=== PATIENT | female | born 1940 | race Caucasian/White ===

== ENCOUNTER → 2016-07-20 | Outpatient (CLI) | payer MEDICARE, BC ==
[2016-07-20 10:40] LABS: EKG EKG PERFORMED
[2016-07-20 11:22] LABS: Basophils # (A) 0.1 k/uL (0-0.2); Basophils % (A) 1 %; CH 29.9; CHCM 31.8; Eosinophils # (A) 0.3 k/uL (0-0.7); Eosinophils % (A) 5 %; HDW 2.51; HGB 12.9 gm/dL (11.4-16.0); Luc # (Auto) 0.21; Luc % (Auto) 3; Lymphocytes # (A) 1.7 k/uL (1.0-4.8); Lymphocytes % (A) 26 %; MCH 29.8 pg (25.0-35.0); MCHC 31.6 g/dL (31.0-37.0); MCV 94.4 fL (80.0-100.0); Mean Platelet Volume 7.1; Monocytes # (A) 0.5 k/uL (0-1.0); Monocytes % (A) 7 %; Neutrophils # (A) 3.8 k/uL (1.3-7.7); Neutrophils % (A) 58 %; RBC 4.34 m/uL (3.80-5.40); RDW 14.3 % (11.5-15.5); WBC 6.5 k/uL (3.8-10.6); WBC (Perox) 7.42
[2016-07-20 11:23] LABS: Appearance,Urine Clear (Clear); Bilirubin,Urine Negative (Negative); Glucose,Urine (UA) Negative (Negative); Ketones,Urine Negative (Negative); Leukocyte Esterase,Urine Negative (Negative); Nitrite,Urine Negative (Negative); PH, Urine 5.5 (5.0-8.0); Protein,Urine Negative (Negative); Specific Gravity,Urine 1.016 (1.001-1.035); UA Billing (MACRO vs. MICRO) CHEM; Urobilinogen,Urine <2.0 mg/dL (<2.0)
[2016-07-20 11:31] LABS: ALT 31 U/L (9-52); AST 32 U/L (14-36); Alkaline Phosphatase 62 U/L (38-126); Anion Gap 14 mmol/L; Blood Urea Nitrogen 25 mg/dL (7-17); Calcium 9.9 mg/dL (8.4-10.2); Carbon Dioxide 27 mmol/L (22-30); Chloride 102 mmol/L (98-107); Glucose 94 mg/dL (74-99); Non-African American GFR(MDRD) >60 (>60 ml/min/1.73 sqM); Potassium 4.8 mmol/L (3.5-5.1); Sodium 143 mmol/L (137-145); Total Bilirubin 0.4 mg/dL (0.2-1.3); Total Protein 7.4 g/dL (6.3-8.2)
[2016-07-20 11:34] LABS: INR 1.1 (<1.1); Prothrombin Time 10.7 sec (9.0-12.0)
== END ==
LOC: LABPAT 10:29
PROVIDERS: ATTEND Orthopaedic Surgery
DX: Z01.810 Encounter for preprocedural cardiovascular examination (principal); Z01.812 Encounter for preprocedural laboratory examination
CPT/HCPCS: 80053; 81003; 85025; 85610; 85730; 87070; 93005

== ENCOUNTER 2016-08-10 06:22 | Inpatient (IN) | payer MEDICARE, BC ==
[2016-08-07 12:12] VITALS: BMI 33.5
[~2016-08-10 06:22] MED LIST: ACETAMINOPHEN TAB 500 MG TAB PO ONE; DEXAMETHASONE SOD PHOSPHATE 10 MG/ML 1 ML VIAL IV ONE; MELOXICAM 7.5 MG TAB PO ONE; MIDAZOLAM 2 MG/2 ML VIAL IV PRN; TRANEXAMIC ACID 1,000 MG in SODIUM CHLORIDE 0.9% 100 ML IVPB ONE; ceFAZolin 2 GM in SODIUM CHLORIDE 0.9% 100 ML IVPB ONE
[2016-08-10 06:43] VITALS: RESP 16
[2016-08-10] MEDS: LACTATED RINGERS 1,000 ML IV SCH (06:55)
[2016-08-10] MEDS ORDERED: LIDOCAINE 1% 20 ML VIAL (10MG/ML) FOR IV START INTRADERMA ONE (06:56)
[2016-08-10] MEDS: ONDANSETRON 4 MG/2 ML VIAL IVP ONE ×2 (07:07→10:47)
[2016-08-10] MEDS ORDERED: HYDROmorphone (PF) 1 MG/ML ONE (07:50)
[2016-08-10] MEDS ORDERED: VECURONIUM 10 MG VIAL IV ONE (07:50)
[2016-08-10] MEDS ORDERED: LIDOCAINE 1% INJ 10MG/ML (20 ML MDV) ONE (07:50)
[2016-08-10] MEDS ORDERED: KETOROLAC 30 MG/ML 1 ML VIAL ONE (07:50)
[2016-08-10] MEDS ORDERED: NEOSTIGMINE 1 MG/ML 10 ML VIAL ONE (07:50)
[2016-08-10] MEDS ORDERED: GLYCOPYRROLATE 0.2 MG/ML 2 ML VIAL ONE (07:50)
[2016-08-10] MEDS ORDERED: fentaNYL (PF) 50 MCG/ML 2 ML AMP ONE (07:50)
[2016-08-10] MEDS ORDERED: MIDAZOLAM 2 MG/2 ML VIAL ONE (07:50)
[2016-08-10] MEDS ORDERED: SUCCINYLCHOLINE CHLORIDE 100 MG/5 ML SYR IV ONE (07:50)
[2016-08-10] MEDS ORDERED: PROPOFOL 10 MG/ML 20 ML VIAL IV ONE (07:50)
[2016-08-10] MEDS ORDERED: TRANEXAMIC ACID 1,000 MG/10 ML VIAL ONE (07:50)
[2016-08-10] MEDS ORDERED: SODIUM CHLORIDE 0.9% 100 ML BAG ONE (07:50)
[2016-08-10] MEDS ORDERED: ePHEDrine 50 MG/ML 1 ML AMP ONE (07:50)
[2016-08-10] MEDS ORDERED: ceFAZolin 3,000 MG in SODIUM CHLORIDE 0.9% IRRIGATIO 3,000 ML IRRIGATION ONE (08:25)
--- NOTE | 2016-08-10 09:50 | P.OP ---
Date of Procedure: 08/10/16 Preoperative Diagnosis: Severe osteoarthritis right shoulder with chronic rotator cuff tear Postoperative Diagnosis: Severe osteoarthritis right shoulder with chronic rotator cuff tear Procedure(s) Performed: Reverse total shoulder arthroplasty Implants: Aguilar SMR shoulder system, humeral stem, 15 mm porous-coated. Aguilar SMR shoulder system, humeral bearing standard +3 Aguilar SMR shoulder, Glenosphere baseplate, small Aguilar SMR shoulder, central peg, Small Aguilar SMR shoulder, bone screw, 6.5mm x 25mm, 30mm Aguilar SMR reverse shoulder glenosphere, 36 mm, small All components were press-fit. Articulation is metal on polyethylene Anesthesia: ALDEN Surgeon: Primitivo Romero Scarf And Anneal Operator #1: Annita Browning Scarf And Anneal Operator #2: Tammy Morel Estimated Blood Loss (ml): 100 Pathology: other (Bone and cartilage) Condition: stable Disposition: PACU Indications for Procedure: This is a patient that presented to my office with severe pain in the shoulder. X-rays demonstrated severe osteoarthritis of the glenohumeral joint of her shoulder. After failure of conservative treatment, we discussed the surgical and nonsurgical treatment options at length. The patient wishes to proceed with a reverse total shoulder arthroplasty. Patient is aware of the complications of the procedure which include but are not limited to infection, hardware failure, persistent pain, dislocation, and nerve injury. Informed consent was obtained. Operative Findings: The operative findings are consistent with severe osteoarthritis the right shoulder with chronic rotator cuff tear. Description of Procedure: DESCRIPTION OF PROCEDURE(S): The patient was seen in the preoperative area, consent was reviewed, and operative site was marked with a skin marker. Patient was then brought to the operating room and given preoperative antibiotics intravenously. Patient was also given 1 g of Tranexamic acid intravenously. A general anesthetic was administered by the anesthesia department. The patient was then placed in a beachchair position with the bony prominences well-padded and the head secured. The shoulder was then prepped and draped in the usual sterile fashion. A universal timeout was then performed, which confirmed the patient's name, surgical site, ALLERGIES, and consent. A standard deltopectoral approach was performed. The skin and subcutaneous tissue was sharply dissected down to the deltoid fascia. The cephalic vein was then identified and retracted medially. The deltopectoral interval was then utilized to expose the subscapularis tendon. A retractor was then placed under the coracobrachialis tendon retracted medially, and the deltoid. The axillary nerve is palpated and protected throughout the procedure. The subscapularis tendon was then released and retracted medially. The humeral head was then exposed easily. The rotator cuff tendon was found to be completely torn and retracted. After the humeral head was exposed, osteophytes were removed with a Ronguer. Next the humeral stem was prepared. A starter reamer was then placed through the humeral head along the axis of the humeral shaft just lateral to the articular surface and just medial to the rotator cuff attachment. Sequential reaming was performed to the appropriate size. Next the intramedullary resection guide was placed on the reamer shaft. It was placed to the appropriate resection depth and angle of 20 of retroversion. Resection guide block was then secured with Steinmann pins. The proximal humerus was then resected. The block was then removed and the humerus was then reamed sequentially to a secure fit. The Reamer handle was removed and a canal cover was placed protect the humerus while the glenoid was prepared. Next attention was directed to the glenoid. The appropriate retractors were placed around the glenoid and any remaining soft tissues was removed from around the glenoid. After the glenoid was adequately exposed, the threaded glenoid guide was placed onto the glenoid and a 3.2 mm Steinmann pin was inserted in the glenoid at the desired angle and position, ensuring the pin engaged medial cortical wall. Next, the cannulated baseplate reamer was placed over the top of the Steinmann pin. The glenoid was then reamed to the appropriate depth. The glenoid reamer was then removed, leaving the Steinmann pin. The central plug reamer was then inserted over the guidewire and reamed to the appropriate depth. The guidewire was then removed. The glenoid baseplate was then preassembled on the back table, and then inserted and fully seated into the prepared glenoid. 2 screws were then placed, one superior, and one inferior. Appropriate Galen a sphere was then assembled onto the insertion handle and inserted into the glenoid baseplate. The locking screw was then inserted into the glenoid sphere. Attention was then redirected to the humerus. The humeral inlay reamer was then used to ream the proximal humerus. The final stem was then impacted. Next a trial humeral tray was placed in the shoulder was reduced. Shoulder was taken through a full range of motion and found to be stable. The shoulder was then gently dislocated, and the trial humerus and humeral tray were removed. The final humeral stem was impacted in the final humeral tray was impacted as well. Shoulder was then relocated. Again the shoulder was taken through a range of motion and found to have no instability. Shoulder was then irrigated with pulsatile lavage. The shoulder was then irrigated with Irrisept solution. The soft tissues were then injected with ropivacaine solution. A second dose of 1 g of Tranexamic acid was given. The subscapularis was then repaired with #1 Vicryl. The deltopectoral interval was then closed with #1 Vicryl as well. The subcutaneous tissues were closed with 2-0 Vicryl then Dermabond was placed on the skin. A sterile dressing was then applied, the patient was transported to the recovery room in an arm sling in stable condition. The legal administrative assistant Annita Browning required due the complexity of the surgery and the need for a skilled retirement assistant.
[2016-08-10] MEDS ORDERED: SENNOSIDES-DOCUSATE SODIUM 1 EACH TAB PO PRN (10:00)
[2016-08-10] MEDS ORDERED: HYDROmorphone 1 MG/ML 1 ML SYRINGE IVP PRN ×3 (10:00)
[2016-08-10] MEDS ORDERED: HYDROcodone/APAP 5-325MG 1 EACH TAB PO PRN (10:00)
--- NOTE | 2016-08-10 10:31 | XR ---
EXAMINATION TYPE: XR shoulder limited RT DATE OF EXAM: 08/10/2016 10:17 AM CLINICAL HISTORY: Postop right shoulder TECHNIQUE: Single postoperative view of the right shoulder is obtained. COMPARISON: None. FINDINGS: There is metallic hardware from reversed right shoulder arthroplasty. Position is satisfac tory. Adjacent subcutaneous air is noted IMPRESSION: There is satisfactory positioning of metallic hardware from right shoulder surgery.
[2016-08-10] MEDS: HYDROmorphone 1 MG/ML 1 ML SYRINGE IVP PRN ×2 (10:46→10:51)
[2016-08-10] MEDS: SODIUM CHLORIDE 0.9% 1,000 ML IV SCH (11:30)
[2016-08-10 12:32] LABS: Basophils # (A) 0.1 k/uL (0-0.2); Basophils % (A) 0 %; CH 29.7; CHCM 31.4; Eosinophils # (A) 0.1 k/uL (0-0.7); Eosinophils % (A) 0 %; HCT 37.6 % (34.0-46.0); HDW 2.41; HGB 11.8 gm/dL (11.4-16.0); Luc # (Auto) 0.07; Luc % (Auto) 1; Lymphocytes % (A) 8 %; MCH 29.8 pg (25.0-35.0); MCHC 31.4 g/dL (31.0-37.0); MCV 95.1 fL (80.0-100.0); Mean Platelet Volume 7.1; Monocytes # (A) 0.2 k/uL (0-1.0); Monocytes % (A) 2 %; Neutrophils # (A) 10.6 k/uL (1.3-7.7); Neutrophils % (A) 89 %; RBC 3.95 m/uL (3.80-5.40); RDW 14.2 % (11.5-15.5); WBC 11.9 k/uL (3.8-10.6); WBC (Perox) 12.78
[2016-08-10] MEDS: ceFAZolin 2 GM in SODIUM CHLORIDE 0.9% 100 ML IVPB SCH (14:32)
[2016-08-10] MEDS: HYDROcodone/APAP 5-325MG 1 EACH TAB PO PRN ×2 (14:33→20:49)
[2016-08-10] MEDS ORDERED: VENLAFAXINE HCL ER 150 MG CAP PO SCH (22:30)
[2016-08-11] MEDS: ceFAZolin 2 GM in SODIUM CHLORIDE 0.9% 100 ML IVPB SCH (01:08)
[2016-08-11] MEDS: HYDROcodone/APAP 5-325MG 1 EACH TAB PO PRN ×3 (04:56→16:10)
[2016-08-11] MEDS: SODIUM CHLORIDE 0.9% 1,000 ML IV SCH (04:59)
[2016-08-11] MEDS: LACTATED RINGERS 1,000 ML IV SCH (04:59)
[2016-08-11] MEDS ORDERED: PANTOPRAZOLE 40 MG TABLET PO SCH (09:00)
--- NOTE | 2016-08-11 09:18 | P.DS ---
Providers Date of admission: 08/10/16 06:22 Expected date of discharge: 08/11/16 Attending physician: Primitivo Romero Consults: 08/11/16 08:42 Consult Physician Routine Consulting Provider: Raj Fulton Reason/Comments: medical management Do you want consulting provider notified?: Yes Primary care physician: [facility] Course: This is a 75-year-old female with known history of severe osteoarthritis of the glenohumeral joint of the right shoulder. The patient presents for evaluation. After discussion and consideration patient elects to proceed with a reverse total shoulder arthroplasty. The patient is seen preoperatively by Dr. Romero and cleared for surgery. Patient is admitted to [facility] on 08/10/2016 for reverse total shoulder arthroplasty. The procedures performed without complication or sequelae. The patient is doing well postoperatively. Labs and vital signs are stable on day of discharge. On day of discharge patient's shoulder incision is healing well. There is minimal erythema. There is no drainage noted at this time. There is minimal soft tissue swelling to the right shoulder. Patient has full motion of the right wrist and elbow. Neurovascular status to the right upper extremity is intact. Patient is discharged home in good condition. Please see med rec for accurate list of home medications. Plan - Discharge Summary New Discharge Prescriptions: HYDROcodone/APAP 5-325MG [Ponderosa 5-325] 1 - 2 tab PO Q4-6H PRN #90 tab PRN Reason: Pain Sennosides-Docusate Sodium [Senokot-S] 1 tab PO BID #60 tablet Discharge Medication List Bisoprolol-Hctz 10-6.25 mg [Ziac 10-6.25 MG] 1 tab PO QAM 03/07/15 [History] Estradiol [Estrace] 0.5 mg PO HS 03/07/15 [History] Omeprazole [PriLOSEC] 20 mg PO DAILY 03/07/15 [History] Venlafaxine HCl ER [Effexor XR] 150 mg PO HS 03/07/15 [History] Gabapentin [Neurontin] 600 mg PO QID 05/02/15 [History] Ferrous Sulfate [Iron (65 MG Elemental)] 325 mg PO DAILY 08/07/16 [History] Flaxseed Oil [Newport-3 Flaxseed Oil] 1,000 mg PO DAILY 08/07/16 [History] Meclizine [Antivert] 12.5 mg PO BID PRN 08/07/16 [History] ALPRAZolam [Alprazolam] 0.5 mg PO DAILY PRN 08/10/16 [History] HYDROcodone/APAP 5-325MG [Ponderosa 5-325] 1 - 2 tab PO Q4-6H PRN #90 tab 08/11/16 [ Rx] Sennosides-Docusate Sodium [Senokot-S] 1 tab PO BID #60 tablet 08/11/16 [Rx] Follow up Appointment(s)/Referral(s): Primitivo Romero DO [Doctor of Osteopathic Medicine] - 2 Weeks Activity/Diet/Wound Care/Special Instructions: Maintain sling for comfort May shower if no drainage from the incision Follow-up with [facility] with any questions or concerns Discharge Disposition: HOME SELF-CARE
[2016-08-11] MEDS ORDERED: MECLIZINE 12.5 MG TAB PO PRN (14:33)
[2016-08-11] MEDS ORDERED: ALPRAZolam 0.5 MG TAB PO PRN (14:33)
[2016-08-11 15:21] VITALS: BP 110/67; PULSE 67; TEMP 97.6
[2016-08-11] MEDS ORDERED: BISOPROLOL-HCTZ 10-6.25 MG 1 EACH TAB PO SCH (16:00)
[2016-08-11 16:07] LABS: Appearance,Urine Clear (Clear); Bilirubin,Urine Negative (Negative); Glucose,Urine (UA) Negative (Negative); Ketones,Urine Negative (Negative); Leukocyte Esterase,Urine Negative (Negative); Nitrite,Urine Negative (Negative); PH, Urine 5.5 (5.0-8.0); Protein,Urine Negative (Negative); Specific Gravity,Urine 1.006 (1.001-1.035); UA Billing (MACRO vs. MICRO) CHEM; Urobilinogen,Urine <2.0 mg/dL (<2.0)
--- NOTE | 2016-08-11 17:31 | CONS ---
DATE OF CONSULTATION: 08/11/2016 REASON FOR CONSULTATION: Advice regarding hypertension and multiple medical issues, requested by Orthopedic [facility]. HISTORY OF PRESENT ILLNESS: This 75-year-old woman with a past medical history of GERD, hypertension, history of DJD, history of section, cholecystectomy, history of depression, being followed by Dr. Fulton in the outpatient setting, was admitted after right shoulder arthroplasty. There is no history of any fever, rigor, or chills. No history of any headache, loss of consciousness. No chest pain, palpitations, shortness of breath, hematochezia, melena. PAST MEDICAL HISTORY: 1. GERD. 2. Hypertension. 3. DJD. 4. History of back surgery. 5. History of depression. Medications prior to admission include: 1. Effexor XR 150 mg p.o. at bedtime. 2. Prilosec 20 mg p.o. daily. 3. Antivert 12.5 mg b.i.d. p.r.n. 4. Neurontin 600 mg p.o. q.i.d. 5. Belmont-3, flaxseed oil 1000 mg p.o. daily. 6. Iron 65 mg/325 mg p.o. daily. 7. Estrace 0.5 mg at bedtime. 8. Ziac 10/6.25 mg each morning. 9. Alprazolam 0.5 mg daily p.r.n. 10. Senokot-S one tablet p.o. b.i.d. 11. Hydrocodone (Bethany) 5 mg 1 to 2 tablet q.4-6 hours p.r.n. ALLERGIES: BENADRYL. FAMILY HISTORY: History of stomach cancer in the family. SOCIAL HISTORY: No history of smoking. No history of alcohol intake. REVIEW OF SYSTEMS: ENT: No diminishing hearing. No diminished vision. CARDIOVASCULAR SYSTEM: No angina, palpitations. RESPIRATORY SYSTEM: No cough, hemoptysis. GI: No nausea. : No dysuria. NERVOUS SYSTEM: No numbness or weakness. ALLERGY/IMMUNOLOGY: No asthma or hayfever. MUSCULOSKELETAL: As mentioned earlier. HEMATOLOGY/ONCOLOGY: No history of anemia. ENDOCRINE: No history of diabetes, hypothyroidism. CONSTITUTIONAL: As mentioned earlier. DERMATOLOGY: Negative. RHEUMATOLOGY: Negative. PSYCHIATRY: As mentioned earlier. PHYSICAL EXAMINATION: Patient is alert and oriented x3. Pulse 78, blood pressure 134/63, respiration 16, temperature 98.6, pulse ox 94% on room air. HEENT: Conjunctivae normal. Oral mucosa moist. NECK: No jugular venous distention. No carotid bruit. No lymph node enlargement. CARDIOVASCULAR SYSTEM: S1, S2 muffled. No S3. No S4. RESPIRATORY SYSTEM: Breath sounds diminished at the bases. A few scattered rhonchi. No crackles. ABDOMEN: Soft, nontender. No mass palpable. LEGS: No edema. No swelling. NERVOUS SYSTEM: Higher functions as mentioned earlier. Cranial nerves 2-12 grossly intact. Moves all 4 limbs. No focal motor or sensory deficit. LYMPHATICS: No lymph node palpable in neck, axillae or groin. JOINTS: Status post right shoulder arthroplasty. Labs at this time show WBC 11.9. ASSESSMENT: 1. Status post right shoulder arthroplasty. 2. Increased white count, possibly reactive. 3. Gastroesophageal reflux disease. 4. Hypertension. 5. History of degenerative joint disease. 6. History of gait dysfunction. 7. History of back surgery. 8. History of cholecystectomy. 9. History of degenerative joint disease. 10. History of depression not otherwise specified. 11. FULL CODE. RECOMMENDATIONS AND DISCUSSION: In this 75-year-old woman who presented with multiple complex medical issues, we will monitor the patient closely, continue the current medications, current with symptomatic treatment. Otherwise, at this time I would recommend DVT prophylaxis. Resume the home medications. I would also recommend incentive spirometry. Will follow the patient closely with you. The patient may be asked to follow with the primary physician closely. Thank you for letting us participate in the care of this patient.
[2016-08-11] MEDS ORDERED: GABAPENTIN 300 MG CAP PO SCH (18:00)
[2016-08-12] MEDS ORDERED: FERROUS SULFATE 325 MG TAB PO SCH (09:00)
== END 2016-08-11 16:50 | disposition home or self-care (01) | DRG 483 ==
LOC: 2ORMAIN 06:22 → 3SUR 10:14
PROVIDERS: ADMIT Orthopaedic Surgery; ATTEND Orthopaedic Surgery
PROC: 0RRJ00Z Replacement of Right Shoulder Joint with Reverse Ball and Socket Synthetic Substitute, Open Approach (ICD-10-PCS; principal; 2016-08-10 07:30)
DX: M19.011 Primary osteoarthritis, right shoulder (principal); I10 Essential (primary) hypertension; M19.012 Primary osteoarthritis, left shoulder; K21.9 Gastro-esophageal reflux disease without esophagitis; R26.9 Unspecified abnormalities of gait and mobility; F32.9 Major depressive disorder, single episode, unspecified; M75.101 Unspecified rotator cuff tear or rupture of right shoulder, not specified as traumatic; Z90.49 Acquired absence of other specified parts of digestive tract; Z79.899 Other long term (current) drug therapy
CPT/HCPCS: 81003; 85025; 88300

== ENCOUNTER → 2017-08-09 | Outpatient (CLI) | payer MEDICARE, BC ==
[2017-08-09 15:02] LABS: HCT 38.5 % (34.0-46.0); HGB 12.6 gm/dL (11.4-16.0); MCHC 32.7 g/dL (31.0-37.0); MCV 88.6 fL (80.0-100.0); Platelet Count 270 k/uL (150-450); RBC 4.34 m/uL (3.80-5.40); RDW 13.7 % (11.5-15.5); WBC 6.7 k/uL (3.8-10.6)
[2017-08-09 15:10] LABS: Partial Thromboplastin Time 23.7 sec (22.0-30.0)
[2017-08-09 15:22] LABS: Albumin 4.2 g/dL (3.5-5.0); Calcium 9.6 mg/dL (8.4-10.2); Potassium 4.3 mmol/L (3.5-5.1); Total Bilirubin 0.2 mg/dL (0.2-1.3); Total Protein 6.7 g/dL (6.3-8.2)
[2017-08-09 15:24] LABS: Appearance,Urine Clear (Clear); Bilirubin,Urine Negative (Negative); Blood,Urine Negative (Negative); Color,Urine Light Yellow; Glucose,Urine (UA) Negative (Negative); Ketones,Urine Negative (Negative); Leukocyte Esterase,Urine Negative (Negative); Nitrite,Urine Negative (Negative); Protein,Urine Negative (Negative); Specific Gravity,Urine 1.013 (1.001-1.035); Urobilinogen,Urine <2.0 mg/dL (<2.0)
== END | disposition home or self-care (01) ==
LOC: LABPAT 14:37
PROVIDERS: ATTEND Orthopaedic Surgery
DX: Z01.812 Encounter for preprocedural laboratory examination (principal)
CPT/HCPCS: 36415; 80053; 81003; 85027; 85610; 85730; 87070; 93005

== ENCOUNTER 2017-08-17 11:26 | Inpatient (IN) | payer MEDICARE, BC ==
[2017-08-10 11:20] VITALS: BMI 32.3
[~2017-08-17 11:26] MED LIST changes: +HYDROmorphone 0.5 MG/0.5 ML SYRINGE IVP PRN; +LACTATED RINGERS 1,000 ML IV SCH; +LIDOCAINE 1% 20 ML VIAL (10MG/ML) FOR IV START INTRADERMA PRN; +MORPHINE SULFATE 2 MG/ML SYRINGE IV PRN; +ONDANSETRON ODT 4 MG TAB PO ONE; +SCOPOLAMINE 1.5MG/72HR PATCH TRANSDERM ONE; -TRANEXAMIC ACID 1,000 MG in SODIUM CHLORIDE 0.9% 100 ML IVPB ONE; +TRANEXAMIC ACID 1,000 MG in SODIUM CHLORIDE 0.9% 50 ML IVPB ONE; -ceFAZolin 2 GM in SODIUM CHLORIDE 0.9% 100 ML IVPB ONE; +ceFAZolin IN SWFI 2 GM/20 ML SYRINGE IVP ONE
[2017-08-17] MEDS: ONDANSETRON 4 MG/2 ML VIAL IVP ONE ×2 (12:40→16:35)
[2017-08-17] MEDS ORDERED: PROPOFOL 10 MG/ML 20 ML VIAL IV ONE (14:29)
[2017-08-17] MEDS ORDERED: NEOSTIGMINE 1 MG/ML 10 ML VIAL ONE (14:29)
[2017-08-17] MEDS ORDERED: LIDOCAINE 1% INJ 10MG/ML (20 ML MDV) ONE (14:29)
[2017-08-17] MEDS ORDERED: ePHEDrine SULFATE/0.9% NACL/PF 50 MG/5 ML SYRINGE IV ONE (14:29)
[2017-08-17] MEDS ORDERED: GLYCOPYRROLATE 0.2 MG/ML 2 ML VIAL ONE (14:29)
[2017-08-17] MEDS ORDERED: SUCCINYLCHOLINE CHLORIDE 100 MG/5 ML SYR IV ONE (14:29)
[2017-08-17] MEDS ORDERED: fentaNYL (PF) 50 MCG/ML 2 ML AMP ONE (14:29)
[2017-08-17] MEDS ORDERED: SODIUM CHLORIDE 0.9% 100 ML BAG ONE (14:29)
[2017-08-17] MEDS ORDERED: TRANEXAMIC ACID 1,000 MG/10 ML VIAL ONE (14:29)
[2017-08-17] MEDS ORDERED: PHENYLEPHRINE-0.9% NACL SYG 1 MG/10 ML SYRINGE ONE (14:29)
[2017-08-17] MEDS ORDERED: VECURONIUM 10 MG VIAL IV ONE (14:29)
[2017-08-17] MEDS ORDERED: ceFAZolin 1,000 MG in SODIUM CHLORIDE 0.9% 1,000 ML IRRIGATION ONE (15:11)
--- NOTE | 2017-08-17 16:04 | P.OP ---
Date of Procedure: 08/17/17 Preoperative Diagnosis: Severe osteoarthritis the left shoulder with chronic rotator cuff tear. Postoperative Diagnosis: Severe osteoarthritis of left shoulder with chronic rotator cuff tear Procedure(s) Performed: Reverse total shoulder arthroplasty Implants: Biomet comprehensive shoulder system, mini humeral stem, 10 mm porous-coated. Biomet comprehensive reverse shoulder system, humeral bearing, 44 mm x 36 mm, standard Biomet comprehensive reverse shoulder system, humeral tray with locking ring, 44 mm, standard Biomet comprehensive reverse shoulder, Glenosphere baseplate, 25 mm Biomet comprehensive reverse shoulder, central screw, 6.5 mm x 20 mm Biomet comprehensive reverse shoulder, fixed locking screw, 4.75 x 25 mm, 15 mm , 15 mm, 25 mm. Biomet comprehensive reverse shoulder glenosphere, 36 mm, standard All components were press-fit. Articulation is metal on polyethylene. Anesthesia: GETA Surgeon: Primitivo Romero Studio Potter #1: Tammy Rodriguez Estimated Blood Loss (ml): 200 Pathology: other (Humeral head) Condition: stable Disposition: PACU Indications for Procedure: This is a patient that presented to my office with severe pain in the shoulder. X-rays demonstrated severe osteoarthritis of the glenohumeral joint of her shoulder. After failure of conservative treatment, we discussed the surgical and nonsurgical treatment options at length. The patient wishes to proceed with a reverse total shoulder arthroplasty. Patient is aware of the complications of the procedure which include but are not limited to infection, hardware failure, persistent pain, dislocation, and nerve injury. Informed consent was obtained. Operative Findings: The operative findings are consistent with severe osteoarthritis of the left shoulder with chronic rotator cuff tear. Description of Procedure: The patient was seen in the preoperative area, consent was reviewed, and operative site was marked with a skin marker. Patient was then brought to the operating room and given preoperative antibiotics intravenously. Patient was also given 1 g of Tranexamic acid intravenously. A general anesthetic was administered by the anesthesia department. A Hoover catheter was placed by the nursing staff. The patient was then placed in a beachchair position with the bony prominences well-padded and the head secured. The shoulder was then prepped and draped in the usual sterile fashion. A universal timeout was then performed, which confirmed the patient's name, surgical site, ALLERGIES, and consent. A standard deltopectoral approach was performed. The skin and subcutaneous tissue was sharply dissected down to the deltoid fascia. The cephalic vein was then identified and retracted medially. The deltopectoral interval was then utilized to expose the subscapularis tendon. A retractor was then placed under the coracobrachialis tendon retracted medially, and the deltoid. The axillary nerve is palpated and protected throughout the procedure. The subscapularis tendon was then released and retracted medially. The humeral head was then exposed easily. The rotator cuff tendon was found to be completely torn and retracted. After the humeral head was exposed, osteophytes were removed with a Ronguer. Next the humeral stem was prepared. A starter reamer was then placed through the humeral head along the axis of the humeral shaft just lateral to the articular surface and just medial to the rotator cuff attachment. Sequential reaming was performed to the appropriate size reamer was inserted to the # between the 3 and 4 on the reamer. Next the intramedullary resection guide was placed on the reamer shaft. It was placed to the appropriate resection depth and angle of 30 of retroversion. Resection guide block was then secured with Steinmann pins. The proximal humerus was then resected. The block was then removed and the humerus was then broached sequentially to the same size as the reamer. After the broaches fully seated, the broach handle was removed and a broach cover was placed protect the humerus while the glenoid was prepared. Next attention was directed to the glenoid. The appropriate retractors were placed around the glenoid and any remaining soft tissues was removed from around the glenoid. After the glenoid was adequately exposed, the threaded glenoid guide was placed onto the glenoid and a 3.2 mm Steinmann pin was inserted in the glenoid at the desired angle and position, ensuring the pin engaged medial cortical wall. Next, the cannulated baseplate reamer was placed over the top of the Steinmann pin. The glenoid was then reamed to the appropriate depth. The glenoid reamer was then removed, leaving the Steinmann pin. The glenoid Edgard plate implant was placed on the end of the cannulated baseplate impactor. The baseplate was then impacted fully into the glenoid. Next the 6.5 mm central screw was then placed which afforded excellent fixation. The 4 peripheral locking screws were then drilled measured and placed. Next the appropriate glenosphere was opened and impacted into the glenoid baseplate. Attention was then redirected to the humerus. Next a trial humeral tray was placed in the shoulder was reduced. Shoulder was taken through a full range of motion and found to be stable. The shoulder was then gently dislocated, and the trial humerus and humeral tray were removed. The final humeral stem was impacted in the final humeral tray was impacted as well. Shoulder was then relocated. Again the shoulder was taken through a range of motion and found to have no instability. Shoulder was then irrigated with pulsatile lavage. The shoulder was then irrigated with Irrisept solution. The soft tissues were then injected with a ropivacaine solution, which consisted of 246.25 mg of ropivacaine, 0.5 mg of epinephrine, 30 mg of Toradol, 80 g of clonidine, and 48.45 mL of sterile water , for a total of 100 mL of fluid injected. A second dose of 1 g of Tranexamic acid was given. The subscapularis was then repaired with #1 Vicryl. The deltopectoral interval was then closed with #1 Vicryl as well. The subcutaneous tissues were closed with 2-0 Vicryl then Dermabond was placed on the skin. A sterile dressing was then applied, the patient was transported to the recovery room in an arm sling in stable condition. The trade sales assistant DANNIELLE Potts was required due the complexity of surgery and the need for a skilled surgical training specialist.
[2017-08-17] MEDS ORDERED: SENNOSIDES-DOCUSATE SODIUM 1 EACH TAB PO PRN (16:19)
[2017-08-17] MEDS ORDERED: HYDROcodone/APAP 5-325MG 1 EACH TAB PO PRN (16:19)
[2017-08-17] MEDS ORDERED: MORPHINE SULFATE 4 MG/ML SYRINGE IVP PRN ×2 (16:19)
[2017-08-17] MEDS ORDERED: ONDANSETRON 4 MG/2 ML VIAL IVP PRN (16:19)
[2017-08-17] MEDS: fentaNYL (PF) 50 MCG/ML 2 ML AMP IVP ONE ×4 (16:52→17:16)
--- NOTE | 2017-08-17 16:59 | XR ---
EXAMINATION TYPE: XR shoulder limited LT DATE OF EXAM: 08/17/2017 COMPARISON: NONE HISTORY: 76-year-old female status post reverse total shoulder arthroplasty TECHNIQUE: Portable AP view of FINDINGS: AC joint appears congruent and intact. Image shows placement of left reverse total shoulder arthropla sty. Alignment appears appropriate. Suggestion of some heterotopic ossification along the superior ma rgin of the shoulder joint can be correlated clinically. Soft tissue air relating to recent operation . No periprosthetic fracture seen. IMPRESSION: Postoperative changes after first left shoulder arthroplasty. Some ossific density directly above the glenosphere component can be correlated clinically. Alignment appears appropriate.
[2017-08-17] MEDS: SODIUM CHLORIDE 0.9% 1,000 ML IV SCH (18:14)
[2017-08-17] MEDS: HYDROcodone/APAP 5-325MG 1 EACH TAB PO PRN (18:16)
[2017-08-17] MEDS ORDERED: ASPIRIN PO PRN (18:20)
[2017-08-17] MEDS ORDERED: ALPRAZolam 1 MG TAB PO PRN (18:20)
--- NOTE | 2017-08-17 18:30 | P.CONS ---
History of Present Illness - Reason for Consult Recommendations regarding antihypertensive medications - History of Present Illness She is a pleasant 76-year-old female admitted for elective left shoulder arthroplasty successfully underwent surgery denied any fever, chills, nausea, vomiting patient is postoperative day 0 did not pass gas yet just came out of 4. Patient does have history of hypertension uses beta helena and diuretic combination which will be continued patient blood pressures fairly controlled does have some pain was just received pain medications for that. Review of Systems REVIEW OF SYSTEMS: CONSTITUTIONAL: No fever, no malaise, no fatigue. HEENT: No recent visual problems or hearing problems. Denied any sore throat. CARDIOVASCULAR: No chest pain, orthopnea, PND, no palpitations, no syncope. PULMONARY: No shortness of breath, no cough, no hemoptysis. GASTROINTESTINAL: No diarrhea, no nausea, no vomiting, no abdominal pain. Normoactive bowel sounds. NEUROLOGICAL: No headaches, no weakness, no numbness. HEMATOLOGICAL: Denies any bleeding or petechiae. GENITOURINARY: Denies any burning micturition, frequency, or urgency. MUSCULOSKELETAL/RHEUMATOLOGICAL: Denies any joint pain, swelling, or any muscle pain. ENDOCRINE: Denies any polyuria or polydipsia. The rest of the 14-point review of systems is negative. Past Medical History Past Medical History: GERD/Reflux, Hypertension, Osteoarthritis (OA) Additional Past Medical History / Comment(s): neuropathy, uses cane or walker. , pain left shoulderwith limited r.o.m. , Hx of anemia with blood transfusions. History of Any Multi-Drug Resistant Organisms: None Reported Past Surgical History: Back Surgery, Section, Cholecystectomy, Hysterectomy, Joint Replacement, Orthopedic Surgery Additional Past Surgical History / Comment(s): BAUTISTA KNEE REPLACEMENTS, C SECTION X3,BACK SURG X 3, 03-18-15 ANT TOTAL LT HIP REPLACEMENT. , CARPAL TUNNEL, RIGHT SHOULDER TLS 08/17/17 Past Anesthesia/Blood Transfusion Reactions: Postoperative Nausea & Vomiting ( PONV) Additional Past Anesthesia/Blood Transfusion Reaction / Comm: pt denies problems with blood transfusions Past Psychological History: Depression Smoking Status: Never smoker Past Alcohol Use History: Rare Past Drug Use History: None Reported - Past Family History Brother(s) Family Medical History: Cancer Additional Family Medical History / Comment(s): STOMACH CANCER Father Family Medical History: Cancer Additional Family Medical History / Comment(s): STOMACH CANCER Mother Family Medical History: No Reported History Medications and Allergies Home Medications Medication Instructions Recorded Confirmed Type Bisoprolol-Hctz 10-6.25 mg [Ziac 1 tab PO QAM 03/07/15 08/17/17 History 10-6.25 MG] Omeprazole [PriLOSEC] 20 mg PO DAILY 03/07/15 08/17/17 History Venlafaxine HCl ER [Effexor XR] 150 mg PO HS 03/07/15 08/17/17 History ALPRAZolam [Alprazolam] 1 mg PO HS PRN 08/10/16 08/17/17 History Aspirin [Aspirin EC] 1,000 mg PO DAILY PRN 08/10/17 08/17/17 History Gabapentin [Neurontin] 1,600 mg PO BID 08/10/17 08/17/17 History Ibuprofen [Advil] 400 mg PO BID PRN 08/10/17 08/17/17 History Allergies Allergy/AdvReac Type Severity Reaction Status Date / Time diphenhydramine HCl Allergy Restless, Verified 08/17/17 17:04 [From Benadryl] Itchy. Physical Exam Vitals: Vital Signs Temp Pulse Pulse Resp BP BP Pulse Ox 08/17/17 18:00 97.9 F 64 16 154/63 98 08/17/17 17:37 59 L 16 145/69 96 08/17/17 17:21 58 L 16 140/66 98 08/17/17 17:06 59 L 16 146/66 97 08/17/17 16:51 57 L 16 140/64 95 08/17/17 16:36 60 16 124/58 98 08/17/17 16:21 97 F L 66 18 146/66 95 08/17/17 12:34 97.8 F 61 16 141/84 95 Intake and Output 08/17/17 08/17/17 08/17/17 06:59 14:59 22:59 Intake Total 750 326 Output Total 300 Balance 750 26 Intake: IV 750 326 Output: Urine 100 Estimated Blood Loss 200 Other: Voiding Method Toilet Weight 72.575 kg PHYSICAL EXAMINATION: GENERAL: The patient is alert and oriented x3, not in any acute distress. Well developed, well nourished. HEENT: Pupils are round and equally reacting to light. EOMI. No scleral icterus. No conjunctival pallor. Normocephalic, atraumatic. No pharyngeal erythema. No thyromegaly. CARDIOVASCULAR: S1 and S2 present. No murmurs, rubs, or gallops. PULMONARY: Chest is clear to auscultation, no wheezing or crackles. ABDOMEN: Soft, nontender, nondistended, normoactive bowel sounds. No palpable organomegaly. MUSCULOSKELETAL: Her to orthopedic surgery EXTREMITIES: No cyanosis, clubbing, or pedal edema. NEUROLOGICAL: Gross neurological examination did not reveal any focal deficits. SKIN: No rashes. Assessment and Plan Plan: -Status post a left shoulder arthroplasty: Patient pain management and due to prophylaxis per primary service -hypertension patient will be resumed on antiplatelet medication x-ray -hyperlipidemia -Gastro-esophageal reflux disease. -Depression For above-mentioned chronic medical problems patient will be resumed and continued on her home medications.
[2017-08-17] MEDS: GABAPENTIN 400 MG CAP PO SCH (20:49)
[2017-08-17] MEDS ORDERED: VENLAFAXINE HCL ER 150 MG CAP PO SCH (21:00)
[2017-08-17] MEDS: MORPHINE SULFATE 4 MG/ML SYRINGE IVP PRN (21:45)
[2017-08-17] MEDS: ceFAZolin IN SWFI 2 GM/20 ML SYRINGE IVP SCH (23:19)
[2017-08-18] MEDS: HYDROcodone/APAP 5-325MG 1 EACH TAB PO PRN (01:35)
[2017-08-18] MEDS: MORPHINE SULFATE 4 MG/ML SYRINGE IVP PRN (02:32)
[2017-08-18] MEDS ORDERED: PANTOPRAZOLE 40 MG TABLET PO SCH (07:30)
[2017-08-18] MEDS: GABAPENTIN 400 MG CAP PO SCH (08:03)
[2017-08-18] MEDS ORDERED: HYDROmorphone 2 MG TAB PO PRN ×3 (08:03)
[2017-08-18] MEDS: ceFAZolin IN SWFI 2 GM/20 ML SYRINGE IVP SCH (08:07)
[2017-08-18] MEDS: SODIUM CHLORIDE 0.9% 1,000 ML IV SCH (08:13)
[2017-08-18 08:20] VITALS: BP 115/65; PULSE 88; RESP 18; TEMP 98.5
[2017-08-18] MEDS ORDERED: HYDROcodone/APAP 7.5-325MG 1 EACH TAB PO PRN (08:51)
[2017-08-18] MEDS ORDERED: BISOPROLOL-HCTZ 10-6.25 MG 1 EACH TAB PO SCH (09:00)
--- NOTE | 2017-08-18 09:02 | P.DS ---
Providers Date of admission: 08/17/17 11:26 Expected date of discharge: 08/18/17 Attending physician: Primitivo Romero Consults: 08/17/17 16:19 Consult Physician Routine Consulting Provider: Lyle Eli Consult Reason/Comments: medical management Do you want consulting provider notified?: Yes Primary care physician: Raj Fulton - Discharge Diagnosis(es) (1) Primary osteoarthritis, left shoulder Current Visit: Yes Status: Acute (2) S/p reverse total shoulder arthroplasty Current Visit: Yes Status: Acute Hospital Course: This is a 76-year-old female with known history of degenerative arthritis of the left shoulder. The patient presents for evaluation. After discussion and consideration patient elects to proceed with reverse left total shoulder arthroplasty. The patient is seen preoperatively by Dr. Romero and medically cleared for surgery by their primary care physician. Patient is admitted to [facility] on 08/17/2017 for reverse left total shoulder arthroplasty. The procedures performed without complication or sequelae. The patient is doing well postoperatively. Labs and vital signs are stable on day of discharge. On day of discharge patient's shoulder incision is healing well. There is minimal erythema. There is no drainage noted at this time. There is minimal soft tissue swelling to the shoulder. Patient has full left wrist and hand motion without difficulty or pain. Neurovascular status to the left upper extremity is intact. Patient is discharged home in good condition. Please see med rec for accurate list of home medications. Plan - Discharge Summary Discharge Rx Participant: Yes New Discharge Prescriptions: New HYDROcodone/APAP 7.5-325MG [[place] 7.5-325] 1 - 2 tab PO Q4-6H PRN #90 tab PRN Reason: Pain Sennosides [Senokot] 1 tab PO BID #60 tablet No Action Venlafaxine HCl ER [Effexor XR] 150 mg PO HS Bisoprolol-Hctz 10-6.25 mg [Ziac 10-6.25 MG] 1 tab PO QAM Omeprazole [PriLOSEC] 20 mg PO DAILY ALPRAZolam [Alprazolam] 1 mg PO HS PRN PRN Reason: Insomnia Gabapentin [Neurontin] 1,600 mg PO BID Ibuprofen [Advil] 400 mg PO BID PRN PRN Reason: Pain Aspirin [Aspirin EC] 1,000 mg PO DAILY PRN PRN Reason: Pain Discharge Medication List Bisoprolol-Hctz 10-6.25 mg [Ziac 10-6.25 MG] 1 tab PO QAM 03/07/15 [History] Omeprazole [PriLOSEC] 20 mg PO DAILY 03/07/15 [History] Venlafaxine HCl ER [Effexor XR] 150 mg PO HS 03/07/15 [History] ALPRAZolam [Alprazolam] 1 mg PO HS PRN 08/10/16 [History] Aspirin [Aspirin EC] 1,000 mg PO DAILY PRN 08/10/17 [History] Gabapentin [Neurontin] 1,600 mg PO BID 08/10/17 [History] Ibuprofen [Advil] 400 mg PO BID PRN 08/10/17 [History] HYDROcodone/APAP 7.5-325MG [[place] 7.5-325] 1 - 2 tab PO Q4-6H PRN #90 tab [Rx] Sennosides [Senokot] 1 tab PO BID #60 tablet 08/18/17 [Rx] Follow up Appointment(s)/Referral(s): Primitivo Romero DO [Doctor of Osteopathic Medicine] - 2 Weeks Activity/Diet/Wound Care/Special Instructions: Maintain sling to left upper extremity. Leave dressing in place for 10 days. May shower with dressing in place. Ice to left shoulder. Please take medications as prescribed. Follow-up with [facility] with any questions or concerns. Discharge Disposition: HOME WITH HOME HEALTH SERVICES
[2017-08-18 09:51] LABS: Basophils % (A) 0 %; Eosinophils % (A) 0 %; HGB 11.3 gm/dL (11.4-16.0); Lymphocytes # (A) 1.9 k/uL (1.0-4.8); Lymphocytes % (A) 20 %; MCH 28.8 pg (25.0-35.0); MCHC 32.5 g/dL (31.0-37.0); MCV 88.8 fL (80.0-100.0); Mean Platelet Volume 7.7; Monocytes # (A) 0.7 k/uL (0-1.0); Monocytes % (A) 8 %; Neutrophils # (A) 6.4 k/uL (1.3-7.7); Neutrophils % (A) 69 %; Platelet Count 304 k/uL (150-450); RBC 3.94 m/uL (3.80-5.40); RDW 13.9 % (11.5-15.5); WBC 9.3 k/uL (3.8-10.6)
[2017-08-18] MEDS: HYDROcodone/APAP 7.5-325MG 1 EACH TAB PO PRN ×2 (11:07→17:19)
== END 2017-08-18 19:30 | disposition home or self-care (01) | DRG 483 ==
LOC: 2ORMAIN 11:26 → 3SUR 16:15
PROVIDERS: ADMIT Orthopaedic Surgery; ATTEND Orthopaedic Surgery
PROC: 0RRK00Z Replacement of Left Shoulder Joint with Reverse Ball and Socket Synthetic Substitute, Open Approach (ICD-10-PCS; principal; 2017-08-17 14:30)
DX: M19.012 Primary osteoarthritis, left shoulder (principal); M75.100 Unspecified rotator cuff tear or rupture of unspecified shoulder, not specified as traumatic; I10 Essential (primary) hypertension; F32.9 Major depressive disorder, single episode, unspecified; K21.9 Gastro-esophageal reflux disease without esophagitis; D64.9 Anemia, unspecified; G62.9 Polyneuropathy, unspecified; E78.5 Hyperlipidemia, unspecified; G47.00 Insomnia, unspecified; E78.1 Pure hyperglyceridemia; Z79.82 Long term (current) use of aspirin; Z79.899 Other long term (current) drug therapy; Z90.710 Acquired absence of both cervix and uterus; Z96.653 Presence of artificial knee joint, bilateral; Z96.611 Presence of right artificial shoulder joint; Z96.642 Presence of left artificial hip joint; Z88.8 Allergy status to other drugs, medicaments and biological substances; Z90.49 Acquired absence of other specified parts of digestive tract; Z80.0 Family history of malignant neoplasm of digestive organs
CPT/HCPCS: 85025; 88300

== ENCOUNTER → 2018-02-23 | Outpatient (CLI) | payer MEDICARE, BC ==
--- NOTE | 2018-02-25 08:22 | CT ---
EXAMINATION TYPE: CT shoulder RT wo con DATE OF EXAM: 02/23/2018 COMPARISON: Right shoulder postsurgical x-ray August 10, 2016 and left shoulder postsurgical x-ray August 17, 2017. HISTORY: pain rt shoulder, contusion injury, possible glenoid loosening. CT DLP: 413.9 mGycm Automated exposure control for dose reduction was used. FINDINGS: Metallic hardware from total reverse right shoulder arthroplasty is redemonstrated. There i s expected moderate atrophy of the supraspinatus and infraspinatus muscles noted best on sagittal jackie ges. Glenoid severe shows anterior rotation or position relative to rest of scaphoid with angulation measu red 37% on axial image 22. No suspicious surrounding lucency is seen. Humeral component shows no suspicious surrounding lucency and remains intact. Acromioclavicular joint is maintained. Visualized right lung is clear. Visualized ribs are intact. IMPRESSION: ABOVE.
== END | disposition home or self-care (01) ==
LOC: RADCTMAIN 13:52
PROVIDERS: ATTEND Orthopaedic Surgery
DX: S40.021D Contusion of right upper arm, subsequent encounter (principal); Z96.611 Presence of right artificial shoulder joint

== ENCOUNTER → 2019-03-07 | Outpatient (CLI) | payer MEDICARE, OTHER ==
[2019-03-07 15:36] LABS: Appearance,Urine Clear (Clear); Bilirubin,Urine Negative (Negative); Blood,Urine Negative (Negative); Color,Urine Light Yellow; Glucose,Urine (UA) Negative (Negative); Ketones,Urine Negative (Negative); Leukocyte Esterase,Urine Negative (Negative); Nitrite,Urine Negative (Negative); PH, Urine 5.5 (5.0-8.0); Protein,Urine Negative (Negative); Specific Gravity,Urine 1.011 (1.001-1.035); Urobilinogen,Urine <2.0 mg/dL (<2.0)
[2019-03-07 15:40] LABS: HCT 39.3 % (34.0-46.0); HGB 12.7 gm/dL (11.4-16.0); MCH 28.6 pg (25.0-35.0); MCHC 32.4 g/dL (31.0-37.0); MCV 88.2 fL (80.0-100.0); Mean Platelet Volume 6.6; Platelet Count 322 k/uL (150-450); RBC 4.45 m/uL (3.80-5.40); RDW 13.7 % (11.5-15.5); WBC 7.8 k/uL (3.8-10.6)
[2019-03-07 15:50] LABS: INR 0.9 (<1.2); Prothrombin Time 9.7 sec (9.0-12.0)
[2019-03-07 15:55] LABS: ALT 27 U/L (9-52); AST 29 U/L (14-36); African American GFR (CKD) >90 (>60 ml/min/1.73 sqM); Albumin 4.4 g/dL (3.5-5.0); Alkaline Phosphatase 79 U/L (38-126); Anion Gap 10 mmol/L; Blood Urea Nitrogen 19 mg/dL (7-17); Calcium 9.8 mg/dL (8.4-10.2); Carbon Dioxide 27 mmol/L (22-30); Chloride 105 mmol/L (98-107); Glucose 124 mg/dL (74-99); Non-African American GFR(CKD) 85 (>60 ml/min/1.73 sqM); Potassium 4.4 mmol/L (3.5-5.1); Sodium 142 mmol/L (137-145); Total Bilirubin 0.2 mg/dL (0.2-1.3); Total Protein 7.1 g/dL (6.3-8.2)
[2019-03-07 16:01] LABS: Partial Thromboplastin Time 19.7 sec (22.0-30.0)
== END | disposition home or self-care (01) ==
LOC: LABPAT 14:50
PROVIDERS: ATTEND Orthopaedic Surgery
DX: Z01.810 Encounter for preprocedural cardiovascular examination (principal); Z01.812 Encounter for preprocedural laboratory examination
CPT/HCPCS: 36415; 80053; 81003; 85027; 85610; 85730; 87070; 93005

== ENCOUNTER → 2019-03-13 | Outpatient (CLI) | payer MEDICARE | END | disposition home or self-care (01) | LOC: LABPAT 15:32 | PROVIDERS: ATTEND Orthopaedic Surgery | DX: Z01.812 Encounter for preprocedural laboratory examination (principal) | CPT/HCPCS: 36415; 86850; 86900; 86901 ==

== ENCOUNTER 2019-03-21 09:30 | Inpatient (IN) | payer MEDICARE, OTHER ==
[2019-03-20 12:08] VITALS: BMI 28.8
[~2019-03-21 09:30] MED LIST changes: -DEXAMETHASONE SOD PHOSPHATE 10 MG/ML 1 ML VIAL IV ONE; -LACTATED RINGERS 1,000 ML IV SCH; -LIDOCAINE 1% 20 ML VIAL (10MG/ML) FOR IV START INTRADERMA PRN; -MELOXICAM 7.5 MG TAB PO ONE; -MORPHINE SULFATE 2 MG/ML SYRINGE IV PRN; -ONDANSETRON ODT 4 MG TAB PO ONE; +ROPIVACAINE 246.25 MG, EPINEPHrine 0.5 MG, KETOROLAC 30 MG, cloNIDine HCL/PF 80 MCG, WA... MISCELLANE ONE; -SCOPOLAMINE 1.5MG/72HR PATCH TRANSDERM ONE; +TRANEXAMIC ACID 1,000 MG in SODIUM CHLORIDE 0.9% 100 ML IVPB ONE; -TRANEXAMIC ACID 1,000 MG in SODIUM CHLORIDE 0.9% 50 ML IVPB ONE; -ceFAZolin IN SWFI 2 GM/20 ML SYRINGE IVP ONE
[2019-03-21] MEDS: GABAPENTIN 300 MG CAP PO ONE ×2 (10:36→15:33)
[2019-03-21] MEDS: MELOXICAM 7.5 MG TAB PO ONE ×2 (10:36→15:33)
[2019-03-21] MEDS: LACTATED RINGERS 1,000 ML IV SCH (10:56)
[2019-03-21] MEDS: DEXAMETHASONE SOD PHOSPHATE 10 MG/ML 1 ML VIAL IV ONE ×2 (10:57→15:33)
[2019-03-21] MEDS: ONDANSETRON 4 MG/2 ML VIAL IVP ONE ×2 (10:57→16:38)
[2019-03-21] MEDS ORDERED: MAGNESIUM HYDROXIDE 2,400 MG/10 ML CUP PO PRN (11:11)
[2019-03-21] MEDS ORDERED: DIAZEPAM 5 MG TAB PO PRN (11:11)
[2019-03-21] MEDS ORDERED: NALOXONE 0.4 MG/ML 1 ML VIAL IV PRN (11:11)
[2019-03-21] MEDS ORDERED: HYDROmorphone 0.5 MG/0.5 ML SYRINGE IVP PRN ×3 (11:11)
[2019-03-21] MEDS ORDERED: ONDANSETRON 4 MG/2 ML VIAL IVP PRN (11:11)
[2019-03-21] MEDS ORDERED: fentaNYL (PF) 50 MCG/ML 2 ML AMP ONE (11:37)
[2019-03-21] MEDS ORDERED: HEPARIN SODIUM,PORCINE 10,000 UNIT/ML 1 ML VIAL ONE (11:37)
[2019-03-21] MEDS ORDERED: TRANEXAMIC ACID 1,000 MG/10 ML VIAL ONE (11:37)
[2019-03-21] MEDS ORDERED: MIDAZOLAM 2 MG/2 ML VIAL ONE (11:37)
[2019-03-21] MEDS ORDERED: PHENYLEPHRINE-0.9% NACL SYG 1 MG/10 ML SYRINGE ONE (11:37)
[2019-03-21] MEDS ORDERED: SODIUM CHLORIDE 0.9% IRRIG 1,000 ML BTL IRRIGATION ONE (11:37)
[2019-03-21] MEDS ORDERED: SODIUM CHLORIDE 0.9% 100 ML BAG ONE (11:37)
[2019-03-21] MEDS ORDERED: ePHEDrine SULFATE/0.9% NACL/PF 50 MG/5 ML SYRINGE IV ONE (11:37)
[2019-03-21] MEDS ORDERED: PROPOFOL 10 MG/ML 20 ML VIAL IV ONE (11:37)
[2019-03-21] MEDS ORDERED: ceFAZolin 3,000 MG in SODIUM CHLORIDE 0.9% IRRIGATIO 3,000 ML IRRIGATION ONE (11:40)
--- NOTE | 2019-03-21 13:20 | P.OP ---
Date of Procedure: 03/21/19 Preoperative Diagnosis: Severe osteoarthritis right hip Postoperative Diagnosis: Severe osteoarthritis right hip Procedure(s) Performed: Right total hip arthroplasty with a direct anterior approach Implants: Arriaga and nephew Polarstem size 2 standard [employer]riaga [employer] Nephew R3, 3 hole acetabular shell, 48 mm [employer]hew reflection 6.5 mm cancellus screw, 20 mm 2 [employer]aga [employer]hew R3, XLPE 20 acetabular liner [employer]riaga [employer]hew Oxinium femoral head 32 m, +4 All components were press-fit. The articulation is Oxinium on polyethylene. Anesthesia: spinal Surgeon: Primitivo Romero Health Coordinator #1: Tammy Rodriguez Estimated Blood Loss (ml): 350 (132 mL returned with Cell Saver) Pathology: other (Femoral head) Condition: stable Disposition: PACU Indications for Procedure: After failure of conservative treatment we discussed the surgical and nonsurgical treatment options at length. Patient wishes to proceed with a total hip arthroplasty with a direct anterior approach. Complications specific to this procedure were discussed at length, including but not limited to infection, leg length discrepancy, dislocation, and nerve injury. Patient is aware of all these complications and informed consent was obtained Operative Findings: The operative findings are consistent with severe osteoarthritis of the right hip Description of Procedure: Patient was seen and evaluated in the preoperative area, consent was reviewed, and the surgical site was marked with a skin marker. Patient was then brought to the operating room and given prophylactic antibiotics intravenously. 1 g of Tranexamic acid was also given. A spinal anesthetic was administered by the anesthesia department. The patient was then placed on the [place] table with the bony prominences well-padded. The hip area was then prepped and draped in usual sterile fashion. A universal timeout was then performed, which confirmed the patient's name, surgical site, ALLERGIES, and procedure being performed. Next the incision site was located at 1 cm distal and 1 cm lateral to the anterior superior iliac spine. The skin and subcutaneous tissues were sharply incised. Incision was carefully dissected down to the fascia overlying the tensor fascia jeanie muscle. This fascia was then incised in line with the incision. Next, using blunt finger dissection, the tensor fascia jeanie muscle was dissected off its investing fascia. The muscle was then carefully retracted laterally with a cobra retractor over the lateral neck of the femur. Next, the circumflex vessels were identified and cauterized using the AquaMantis device. The anterior hip capsule was then exposed. The capsule was then opened and an inverted T fashion. Cobra retractors were then placed intracapsularly. The proximal femur was then visualized. The femoral neck was then osteotomized appropriate level above the lesser trochanter. Small amount of traction was placed with the [place] table. A small wedge of bone was then removed from the remaining femoral head. Next, using a corkscrew femoral head was easily removed from the acetabulum. On gross visual inspection, the femoral head had complete loss of articular cartilage in m ultiple periarticular osteophytes. Attention was then turned to the acetabulum. the acetabulum was exposed and any remaining labrum was excised. Sequential reaming of the acetabulum was performed using fluoroscopic guidance. When the appropriate size was reached, a trial was then placed. The position and fit of the trial was checked with fluoroscopy. The trial was then removed. Then, using fluoroscopic guidance, the final implant was impacted at 20 of anteversion and 40 of abduction, and fully seated in the acetabulum. 2 screws were then placed in the acetabulum. Again fluoroscopy was used to check position of the screws. Next, the liner was then impacted, with a 20 elevated liner located in the anterior superior quadrant. Component locking was confirmed. Attention was then directed to the femur. With the aid of the [place] table, the femur was externally rotated to approximately 130, extended, and abducted under the opposite leg. A side hook was then placed under the proximal femur, and the side hook elevator was used to elevate the proximal femur. Retractors were then placed. A capsular release was performed, as well as a release of the conjoined tendon, which afforded excellent visualization of the proximal femur. Next, a box osteotome was used to lateralize the proximal femur. A mail handler equipment operator was then used to locate the femoral canal. Sequential broaching was then performed with appropriate size which afforded excellent fixation in the proximal femur. A trial was then placed with appropriate head and neck, and the hip was gently reduced with the aid of the [place] table. Fluoroscopy was then used to check position of the components, as well as to ensure equal leg lengths. The hip was then gently dislocated and the trials were then removed. Final implants were then impacted and the hip was again reduced. Final fluoroscopic x-rays confirmed that the components were in anatomic position, as well as equal leg lengths. The hip was also taken through range of motion, and found to be stable. The hip was then copiously irrigated with antibiotic solution with pulsatile lavage. The hip was then irrigated with Irrisept solution. The soft tissues were then injected with a ropivacaine solution, which consisted of 246.25 mg of ropivacaine, 0.5 mg of epinephrine, 30 mg of Toradol, 80 g of clonidine, and 48.45 mL of sterile water, for a total of 100 mL of fluid injected. A second dose of 1 g of Tranexamic acid was also given. the fascia was then closed with 2-0 strata fix suture. The subcutaneous tissue was closed with 3-0 Vicryl. The subcuticular tissue was closed with 3-0 strata fix suture. The skin was then closed with Dermabond glue and a sterile silver dressing. The patient was then transferred to the recovery room in stable c ondition. The conservation assistant DANNIELLE Potts was required due to the complexity of surgery, and the need for skilled surgical scheduler for positioning, draping, exposure, retraction, and closure of the wound.
--- NOTE | 2019-03-21 13:36 | FL ---
EXAMINATION TYPE: FL guidance operating room, XR Hip Limited RT DATE OF EXAM: 03/21/2019 CLINICAL HISTORY: Right hip pain and osteoarthritis. TECHNIQUE: Fluoroscopy. Limited intraoperative views right hip. COMPARISON: None. FINDINGS: Fluoroscopic guidance was provided during hip replacement procedure performed by Dr. Michelle stroud. A total of 51 seconds of fluoroscopic time was utilized during the procedure and two spot intra operative fluoroscopic images are acquired. Images acquired show satisfactory positioning of right hip hardware on frontal projection. IMPRESSION: As Above.
--- NOTE | 2019-03-21 14:01 | XR ---
EXAMINATION TYPE: XR Hip Limited RT DATE OF EXAM: 03/21/2019 CLINICAL HISTORY: Right hip pain and osteoarthritis. TECHNIQUE: Single AP portable view of right hip is obtained immediately postoperatively. COMPARISON: None. FINDINGS: Metallic hardware from right hip arthroplasty is seen and appears satisfactory in alignment and position. There is evidence of recent surgery with subcutaneous gas noted surrounding the prost hesis extending laterally. IMPRESSION: Metallic hardware from right hip arthroplasty is satisfactory in position.
[2019-03-21] MEDS: SODIUM CHLORIDE 0.9% 1,000 ML IV SCH (16:38)
[2019-03-21] MEDS: SENNOSIDES-DOCUSATE SODIUM 1 EACH TAB PO SCH (21:18)
[2019-03-21] MEDS: ASPIRIN 325 MG TAB PO SCH (21:18)
--- NOTE | 2019-03-21 22:49 | P.CONS ---
History of Present Illness - Reason for Consult Consult date: 03/21/19 Medical management Requesting physician: Primitivo Romero - Chief Complaint Right hip surgery - History of Present Illness Consultation: This is a pleasant 78-year-old patient of Dr. Fulton. Patient today has undergone right total hip arthroplasty. Developing some pain of the operative site. No nausea no vomiting. No dizziness no lightheadedness. Denies any chest pain. Chronic stable medical conditions include depression, GERD, hypertension, osteoarthritis. Patient is at low platelets in the past that has been corrected. Denies any cardiac history. Review of systems: GEN.: None EYES: None HEENT: None NECK: None RESPIRATORY: None CARDIOVASCULAR: None GASTROINTESTINAL: None GENITOURINARY: None MUSCULOSKELETAL: [Joint pains LYMPHATICS: None HEMATOLOGICAL: None PSYCHIATRY: Depression controlled NEUROLOGICAL: None Social history: Does not smoke. Alcohol rarely. Lives alone Physical examination: VITAL SIGNS: 97.9, 61, 17, 91/55, 98% on room air GENERAL: BMI 29.9, laying in bed comfortable. EYES: Pupils equal. Conjunctiva normal. HEENT: External appearance of nose and ears normal, oral cavity grossly normal. NECK: JVD not raised; masses not palpable. HEART: First and second heart sounds are normal; no edema. LUNGS: Respiratory rate normal; clear to auscultation. ABDOMEN: Soft, nontender, liver spleen not palpable, no masses palpable. PSYCH: Alert and oriented x3; mood and affect normal. NEUROLOGICAL: Cranial nerves grossly intact; no facial asymmetry, power and sensation grossly intact. LYMPHATICS: No lymph nodes palpable in the axilla and neck MUSCULOSKELETAL: Evidence of OA especially in the hands, dressing over the right hip INVESTIGATIONS, reviewed in the clinical context: Blood work from 03/07/2019. White count 7.8 hemoglobin 12.7 platelets 322 potassium 4.4 creatinine 0.63 Assessment: -Right total hip arthroplasty -GERD -Essential hypertension -Primary osteoarthritis -Depression not otherwise specified Plan: Home medications resumed. She is on aspirin 325 did have positive for DVT prophylaxis. Care was discussed with the patient. Questions were answered. Thank you Dr. Romero Past Medical History Past Medical History: GERD/Reflux, Hypertension, Osteoarthritis (OA) Additional Past Medical History / Comment(s): past hx low platelets, uses cane or walker, hx ulcer yrs ago, History of Any Multi-Drug Resistant Organisms: None Reported Past Surgical History: Back Surgery, Section, Cholecystectomy, Hysterectomy, Joint Replacement, Orthopedic Surgery Additional Past Surgical History / Comment(s): BAUTISTA KNEE REPLACEMENTS, C SECTION X3, BACK SURG X 3, ANT TOTAL LT HIP REPLACEMENT. ,CARPAL TUNNEL-not sure what hand, bautista shoulder replacements, bautista cataracts Past Anesthesia/Blood Transfusion Reactions: Blood Transfusion Reaction, Postoperative Nausea & Vomiting (PONV) Additional Past Anesthesia/Blood Transfusion Reaction / Comm: jittery and itchy Past Psychological History: Depression Smoking Status: Never smoker Past Alcohol Use History: Rare Past Drug Use History: None Reported - Past Family History Brother(s) Family Medical History: Cancer Additional Family Medical History / Comment(s): STOMACH CANCER Father Family Medical History: Cancer Additional Family Medical History / Comment(s): STOMACH CANCER Mother Family Medical History: No Reported History Medications and Allergies Home Medications Medication Instructions Recorded Confirmed Type Bisoprolol-Hctz 10-6.25 mg [Ziac 1 tab PO QAM 03/07/15 03/21/19 History 10-6.25 MG] Omeprazole [PriLOSEC] 20 mg PO DAILY 03/07/15 03/21/19 History Venlafaxine HCl ER [Effexor XR] 150 mg PO HS 03/07/15 03/21/19 History ALPRAZolam [Alprazolam] 1 mg PO HS PRN 08/10/16 03/21/19 History Gabapentin [Neurontin] 800 mg PO QID 08/10/17 03/21/19 History Ibuprofen [Advil] 800 mg PO QID PRN 08/10/17 03/21/19 History Estradiol 0.5 mg PO HS 03/20/19 03/21/19 History Sennosides [Senokot] 1 tab PO BID PRN 03/20/19 03/21/19 History Acetaminophen [Tylenol] 325 - 650 mg PO Q4H PRN 03/21/19 03/21/19 History Allergies Allergy/AdvReac Type Severity Reaction Status Date / Time diphenhydramine HCl Allergy Restless, Verified 03/21/19 10:51 [From Benadryl] Itchy. Physical Exam Vitals: Vital Signs Temp Pulse Resp BP BP Pulse Ox 03/21/19 17:05 68 105/46 03/21/19 16:50 66 87/42 12/03/19 16:35 64 94/57 03/21/19 16:20 65 97/52 03/21/19 16:05 63 90/44 03/21/19 15:50 64 106/49 03/21/19 15:35 64 115/64 03/21/19 15:20 64 108/51 03/21/19 15:05 64 145/49 03/21/19 14:50 97.9 F 61 17 91/55 98 03/21/19 14:30 57 L 16 119/57 99 03/21/19 14:16 55 L 16 118/57 99 03/21/19 14:01 60 16 121/55 98 03/21/19 13:45 60 16 96/50 99 03/21/19 13:39 97.0 F L 62 22 128/58 93 L 03/21/19 10:29 97.6 F 57 L 20 140/66 95 Intake and Output 03/21/19 03/21/19 03/21/19 06:59 14:59 22:59 Intake Total 1801 Output Total 350 400 Balance 1451 -400 Intake: IV 1801 Output: Urine 400 Estimated Blood Loss 350 Other: Weight 67.2 kg 67.2 kg
[2019-03-22] MEDS: HYDROcodone/APAP 5-325MG 1 EACH TAB PO PRN ×5 (00:12→23:20)
[2019-03-22] MEDS: LACTATED RINGERS 1,000 ML IV SCH (03:51)
[2019-03-22] MEDS: SODIUM CHLORIDE 0.9% 1,000 ML IV SCH ×2 (03:51→12:18)
[2019-03-22] MEDS: MELOXICAM 7.5 MG TAB PO SCH (07:34)
[2019-03-22] MEDS: ASPIRIN 325 MG TAB PO SCH ×2 (07:34→20:30)
[2019-03-22 08:15] LABS: Basophils % (A) 0 %; Eosinophils % (A) 0 %; HCT 25.5 % (34.0-46.0); Lymphocytes # (A) 1.6 k/uL (1.0-4.8); Lymphocytes % (A) 14 %; MCH 29.1 pg (25.0-35.0); MCHC 33.3 g/dL (31.0-37.0); MCV 87.4 fL (80.0-100.0); Mean Platelet Volume 6.8; Monocytes # (A) 0.8 k/uL (0-1.0); Monocytes % (A) 7 %; Neutrophils # (A) 8.3 k/uL (1.3-7.7); Neutrophils % (A) 76 %; Platelet Count 227 k/uL (150-450); RBC 2.92 m/uL (3.80-5.40); RDW 14.3 % (11.5-15.5); WBC 10.9 k/uL (3.8-10.6)
[2019-03-22 08:18] LABS: HGB 8.5 gm/dL (11.4-16.0)
--- NOTE | 2019-03-22 08:41 | P.PN ---
Subjective Progress Note Date: 03/22/19 This is an 78-year-old female who is status post right total hip arthroplasty. This is postoperative day #1 and patient is seen and evaluated at bedside with Dr. Primitivo Romero. Patient does complain of pain in the right hip today. Patient also reports pain in the right great toe along with difficulty dorsiflexing the right foot. Patient denies any fever/chills, numbness, weakness, tingling, abdominal pain, shortness of breath or chest pain. Objective - Vital Signs Vital signs: Vital Signs Temp 97.7 F 03/22/19 07:00 Pulse 71 03/22/19 07:00 Resp 17 03/22/19 07:00 BP 112/66 03/22/19 07:00 Pulse Ox 100 03/22/19 07:00 Intake & Output 03/21/19 03/22/19 03/22/19 18:59 06:59 18:59 Intake Total 1801 960 Output Total 750 1700 Balance 1051 -740 Weight 67.2 kg Intake: IV 1801 Oral 960 Output: Urine 400 1700 Estimated Blood Loss 350 Other: Voiding Method Toilet # Voids 3 - Exam Vital signs are stable. Patient is in no acute distress and is alert and oriented 3. Calf is soft and nontender to palpation. Dressing is clean, dry, and intact. Patient has difficulty with dorsiflexion of the right foot. Patient is able to actively plantar flex the right foot. Sensation intact upon palpation of the first dorsal webspace. There is no swelling, erythema or ecchymosis of the right foot. Sensation intact to the right lower extremity. Neurovascular status and circulatory status are intact. - Labs CBC & Chem 7: 03/22/19 07:51 Labs: Abnormal Lab Results - Last 24 Hours (Table) 03/22/19 Range/Units 07:51 WBC 10.9 H (3.8-10.6) k/uL RBC 2.92 L (3.80-5.40) m/uL Hgb 8.5 L D (11.4-16.0) gm/dL Hct 25.5 L (34.0-46.0) % Neutrophils # 8.3 H (1.3-7.7) k/uL Assessment and Plan (1) Osteoarthritis of right hip Current Visit: Yes Status: Acute Code(s): M16.11 - UNILATERAL PRIMARY OSTEOARTHRITIS, RIGHT HIP SNOMED Code(s): 878767237982571 (2) S/P total hip arthroplasty Current Visit: Yes Status: Acute Code(s): Z96.649 - PRESENCE OF UNSPECIFIED ARTIFICIAL HIP JOINT SNOMED Code(s): 544995943984 Plan: Continue routine postop care and pain control. Continue anticoagulation with aspirin. Weightbearing as tolerated with a walker. Patient is to work on range of motion of the right foot and ankle. Will continue monitoring. Leave dressing in place for 10 days. Appreciate input from medicine. Anticipate discharge to the [facility] on Wednesday.
[2019-03-22] MEDS: GABAPENTIN 400 MG CAP PO SCH ×2 (16:31→20:30)
[2019-03-22] MEDS: SENNOSIDES-DOCUSATE SODIUM 1 EACH TAB PO SCH (20:30)
--- NOTE | 2019-03-22 23:32 | P.PN ---
Progress Note - Text Progress Note Date: 03/22/19 - Chief Complaint Right hip surgery Interval history: This is a pleasant 78-year-old patient of Dr. Fulton. Patient today has undergone right total hip arthroplasty. Developing some pain of the operative site. No nausea no vomiting. No dizziness no lightheadedness. Denies any chest pain. Chronic stable medical conditions include depression, GERD, hypertension, osteoarthritis. Patient is at low platelets in the past that has been corrected. Denies any cardiac history. Today-doing better. Some pain in the right hip. Did local therapy. Did tolerate her diet. No nausea vomiting. Review of systems: Was done for constitutional, cardiovascular, GI, pulmonary. relevant finding as above Active Medications Hydrocodone Bitart/Acetaminophen ([place] 5-325) 1 each PO Q6HR PRN PRN Reason: Pain Scale 1 to 5 Last Admin: 03/22/19 12:17 Dose: 1 each Documented by: Hydrocodone Bitart/Acetaminophen ([place] 5-325) 2 each PO Q6HR PRN PRN Reason: Pain Scale 6 to 10 Last Admin: 03/22/19 23:20 Dose: 2 each Documented by: Aspirin (Aspirin) 325 mg PO BID [facility] Last Admin: 03/22/19 20:30 Dose: 325 mg Documented by: Diazepam (Valium) 2.5 mg PO Q8HR PRN PRN Reason: Mild Spasms Gabapentin (Neurontin) 800 mg PO QID [facility] Last Admin: 03/22/19 20:30 Dose: 800 mg Documented by: Hydromorphone HCl (Dilaudid) 0.125 mg IVP Q3HR PRN PRN Reason: Pain Scale 1 to 3 Hydromorphone HCl (Dilaudid) 0.25 mg IVP Q3HR PRN PRN Reason: Pain Scale 4 to 6 Hydromorphone HCl (Dilaudid) 0.5 mg IVP Q3HR PRN PRN Reason: Pain Scale 7 to 10 Sodium Chloride (Saline 0.9%) 1,000 mls @ 65 mls/hr IV .[id number] [facility] Last Admin: 03/22/19 12:18 Dose: 65 mls/hr Documented by: Magnesium Hydroxide (Milk Of Magnesia) 2,400 mg PO DAILY PRN PRN Reason: Constipation Meloxicam (Mobic) 7.5 mg PO DAILY [facility] Last Admin: 03/22/19 07:34 Dose: 7.5 mg Documented by: Naloxone HCl (Narcan) 0.2 mg IV Q2M PRN PRN Reason: Opioid Reversal Ondansetron HCl (Zofran) 4 mg IVP Q8H PRN PRN Reason: Nausea And Vomiting Senna/Docusate Sodium (Senokot-S) 2 each PO HS [facility] Last Admin: 03/22/19 20:30 Dose: 2 each Documented by: Physical examination: VITAL SIGNS: 98.6, 80, 16, 92/44, 98% room air GENERAL: Sitting up, comfortable EYES: Pupils equal. Conjunctiva normal. HEENT: External appearance of nose and ears normal, oral cavity grossly normal. NECK: JVD not raised; masses not palpable. HEART: First and second heart sounds are normal; no edema. LUNGS: Respiratory rate normal; clear to auscultation. ABDOMEN: Soft, nontender, liver spleen not palpable, no masses palpable. PSYCH: Alert and oriented x3; mood and affect normal. MUSCULOSKELETAL: Evidence of OA especially in the hands, dressing over the right hip INVESTIGATIONS, reviewed in the clinical context: White count 10.9 abdomen 8.5 Blood work from 03/07/2019. White count 7.8 hemoglobin 12.7 platelets 322 potassium 4.4 creatinine 0.63 Assessment: -Right total hip arthroplasty -GERD -Essential hypertension, currently Pressures decreased -Primary osteoarthritis -Depression not otherwise specified -Acute postop blood loss anemia as expected from surgery Plan: Patient's antihypertensive has been held. Add iron supplementation. Thank you Dr. Romero
[2019-03-22] MEDS ORDERED: GABAPENTIN 800 MG PO SCH (23:45)
[2019-03-23] MEDS: VENLAFAXINE HCL ER 150 MG CAP PO SCH ×2 (00:40→20:27)
[2019-03-23] MEDS: ESTRADIOL 0.5 MG TAB PO SCH ×2 (00:40→20:27)
[2019-03-23] MEDS: MELOXICAM 7.5 MG TAB PO SCH (07:37)
[2019-03-23] MEDS: FERROUS SULFATE 325 MG TAB PO SCH ×2 (07:37→16:58)
[2019-03-23] MEDS: ASPIRIN 325 MG TAB PO SCH ×2 (07:37→20:27)
[2019-03-23] MEDS: GABAPENTIN 400 MG CAP PO SCH ×4 (07:37→20:27)
[2019-03-23] MEDS: PANTOPRAZOLE 40 MG TABLET PO SCH (07:38)
[2019-03-23] MEDS: HYDROcodone/APAP 5-325MG 1 EACH TAB PO PRN ×3 (07:46→20:27)
--- NOTE | 2019-03-23 10:23 | P.PN ---
Subjective Progress Note Date: 03/23/19 This is an 78-year-old female who is status post right total hip arthroplasty. This is postoperative day #2 and patient is seen and evaluated at bedside. Patient states that she has been up and walking with physical therapy. Patient reports continued difficulty with dorsiflexion of the right foot. Patient denies any new complaints today. Patient denies any fever/chills, numbness, w eakness, tingling, abdominal pain, shortness of breath or chest pain. Objective - Vital Signs Vital signs: Vital Signs Temp 100.3 F H 03/23/19 07:27 Pulse 110 H 03/23/19 07:27 Resp 18 03/23/19 07:27 BP 149/68 03/23/19 07:27 Pulse Ox 97 03/23/19 07:27 Intake & Output 03/22/19 03/23/19 03/23/19 18:59 06:59 18:59 Intake Total 520 960 Balance 520 960 Intake: IV 520 Sodium Chloride 0.9% 1, 520 000 ml @ 65 mls/hr IV . [id number] [facility] Rx#:[id number] Oral 960 Other: Voiding Method Toilet # Voids 1 - Exam Vital signs are stable. Patient is in no acute distress and is alert and oriented 3. Calf is soft and nontender to palpation. Dressing is clean, dry, and intact. Patient has difficulty with dorsiflexion of the right foot. Patient is able to actively plantar flex the right foot. Sensation intact upon palpation of the first dorsal webspace. There is no swelling, erythema or ecchymosis of the right foot. Sensation intact to the right lower extremity. Neurovascular status and circulatory status are intact. - Labs CBC & Chem 7: 03/22/19 07:51 Assessment and Plan (1) Osteoarthritis of right hip Current Visit: Yes Status: Acute Code(s): M16.11 - UNILATERAL PRIMARY OSTEOARTHRITIS, RIGHT HIP SNOMED Code(s): 010954940991511 (2) S/P total hip arthroplasty Current Visit: Yes Status: Acute Code(s): Z96.649 - PRESENCE OF UNSPECIFIED ARTIFICIAL HIP JOINT SNOMED Code(s): 181297904803 Plan: Continue routine postop care and pain control. Continue anticoagulation with aspirin. Weightbearing as tolerated with a walker. Patient is to work on range of motion of the right foot and ankle. Will obtain AFO. Leave dressing in place for 10 days. Appreciate input from medicine. Anticipate discharge to the [facility] on Wednesday.
[2019-03-23] MEDS: SODIUM CHLORIDE 0.9% 1,000 ML IV SCH (10:46)
[2019-03-23 15:33] VITALS: RESP 16
[2019-03-23] MEDS: SENNOSIDES-DOCUSATE SODIUM 1 EACH TAB PO SCH (20:27)
[2019-03-24] MEDS: HYDROcodone/APAP 5-325MG 1 EACH TAB PO PRN ×2 (06:28→15:55)
[2019-03-24 07:33] LABS: Basophils % (A) 0 %; Eosinophils # (A) 0.3 k/uL (0-0.7); Eosinophils % (A) 4 %; HCT 23.3 % (34.0-46.0); HGB 7.7 gm/dL (11.4-16.0); Lymphocytes % (A) 14 %; MCH 29.1 pg (25.0-35.0); MCV 88.4 fL (80.0-100.0); Mean Platelet Volume 8.6; Monocytes # (A) 0.5 k/uL (0-1.0); Monocytes % (A) 7 %; Neutrophils # (A) 5.2 k/uL (1.3-7.7); Neutrophils % (A) 74 %; Platelet Count 214 k/uL (150-450); RBC 2.64 m/uL (3.80-5.40); RDW 14.8 % (11.5-15.5); WBC 7.1 k/uL (3.8-10.6)
--- NOTE | 2019-03-24 08:39 | P.PN ---
Subjective Progress Note Date: 03/24/19 This is an 78-year-old female who is status post right total hip arthroplasty. This is postoperative day #3 and patient is seen and evaluated at bedside. Patient states that she has been up and walking with physical therapy and she is working on range of motion of the right foot and ankle. Patient states that she still has difficulty with dorsiflexion of the right foot. Patient denies any new complaints today. Patient denies any dizziness, fever/chills, numbness, weakness, tingling, abdominal pain, shortness of breath or chest pain. Objective - Vital Signs Vital signs: Vital Signs Temp 100.0 F H 03/24/19 07:20 Pulse 99 03/24/19 07:20 Resp 16 03/24/19 07:20 BP 128/66 03/24/19 07:20 Pulse Ox 95 03/24/19 07:20 Intake & Output 03/23/19 03/24/19 03/24/19 18:59 06:59 18:59 Intake Total 520 320 Balance 520 320 Intake: IV 520 Sodium Chloride 0.9% 1, 520 000 ml @ 65 mls/hr IV . [id number] [facility] Rx#:[id number] Oral 320 Other: Voiding Method Toilet # Voids 2 - Exam Vital signs are stable. Patient is sitting comfortably in a chair in no acute distress. Patient is alert and oriented 3. Calf is soft and nontender to palpation. Dressing is clean, dry, and intact. There is ecchymosis over the left hip. Compartments are soft. Patient has difficulty with dorsiflexion of the right foot. Patient is able to actively plantar flex the right foot. Sensation intact upon palpation of the first dorsal webspace. Sensation intact to the right lower extremity. Neurovascular status and circulatory status are intact. - Labs CBC & Chem 7: 03/24/19 07:06 Labs: Abnormal Lab Results - Last 24 Hours (Table) 03/24/19 Range/Units 07:06 RBC 2.64 L (3.80-5.40) m/uL Hgb 7.7 L (11.4-16.0) gm/dL Hct 23.3 L (34.0-46.0) % Assessment and Plan (1) Osteoarthritis of right hip Current Visit: Yes Status: Acute Code(s): M16.11 - UNILATERAL PRIMARY OSTEOARTHRITIS, RIGHT HIP SNOMED Code(s): 835076655066604 (2) S/P total hip arthroplasty Current Visit: Yes Status: Acute Code(s): Z96.649 - PRESENCE OF UNSPECIFIED ARTIFICIAL HIP JOINT SNOMED Code(s): 485707856755 Plan: Continue routine postop care and pain control. Continue anticoagulation with aspirin. Weightbearing as tolerated with a walker. Patient is to work on range of motion of the right foot and ankle. Will obtain AFO. Leave dressing in place for 10 days. Hemoglobin is 7.7 today. Patient is asymptomatic. Appreciate input from medicine. Anticipate discharge to the ECF later today if cleared medically.
--- NOTE | 2019-03-24 08:42 | P.DS ---
Providers Date of admission: 03/21/19 09:57 Expected date of discharge: 03/24/19 Attending physician: Primitivo Romero Consults: 03/21/19 11:11 Consult Physician Routine Consulting Provider: Lyle Eli Consult Reason/Comments: medical management Do you want consulting provider notified?: Yes Primary care physician: Raj Fulton - Discharge Diagnosis(es) (1) Osteoarthritis of right hip Current Visit: Yes Status: Acute (2) S/P total hip arthroplasty Current Visit: Yes Status: Acute Hospital Course: This is a 78-year-old female with known history of degenerative arthritis of the right hip. The patient presents for evaluation. After discussion and consideration patient elects to proceed with total hip arthroplasty. The patient is seen preoperatively by Dr. Romero and medically cleared for surgery by their primary care physician. Patient is admitted to [facility] on 03/21/2019 for total hip arthroplasty. The procedures performed without complication or sequelae. The patient is doing well postoperatively. Labs and vital signs are stable on day of discharge. On day of discharge patient's hip incision is healing well. There is minimal erythema. There is no drainage noted at this time. There is minimal soft tissue swelling to the hip and thigh. Patient has full foot and ankle motion without difficulty or pain. Calf is soft and nontender to palpation. Neurovascular status to the right lower extremity is intact. Patient is discharged to rehab in good condition. Opioid start talking form is reviewed and signed at patient bedside. Please see med rec for accurate list of home medications. Plan - Discharge Summary Discharge Rx Participant: Yes New Discharge Prescriptions: New Aspirin 325 mg PO BID #60 tab HYDROcodone/APAP 5-325MG [[place] 5-325] 1 - 2 tab PO Q6HR PRN #56 tab PRN Reason: Pain Sennosides [Senokot] 1 tab PO BID #60 tablet No Action Venlafaxine HCl ER [Effexor XR] 150 mg PO HS Bisoprolol-Hctz 10-6.25 mg [[place] 10-6.25 MG] 1 tab PO QAM Omeprazole [PriLOSEC] 20 mg PO DAILY ALPRAZolam [Alprazolam] 1 mg PO HS PRN PRN Reason: Insomnia Gabapentin [Neurontin] 800 mg PO QID Ibuprofen [Advil] 800 mg PO QID PRN PRN Reason: Pain Estradiol 0.5 mg PO HS Sennosides [Senokot] 1 tab PO BID PRN PRN Reason: Constipation Acetaminophen [Tylenol] 325 - 650 mg PO Q4H PRN PRN Reason: Pain Discharge Medication List Bisoprolol-Hctz 10-6.25 mg [[place] 10-6.25 MG] 1 tab PO QAM 03/07/15 [History] Omeprazole [PriLOSEC] 20 mg PO DAILY 03/07/15 [History] Venlafaxine HCl ER [Effexor XR] 150 mg PO HS 03/07/15 [History] ALPRAZolam [Alprazolam] 1 mg PO HS PRN 08/10/16 [History] Gabapentin [Neurontin] 800 mg PO QID 08/10/17 [History] Ibuprofen [Advil] 800 mg PO QID PRN 08/10/17 [History] Estradiol 0.5 mg PO HS 03/20/19 [History] Sennosides [Senokot] 1 tab PO BID PRN 03/20/19 [History] Acetaminophen [Tylenol] 325 - 650 mg PO Q4H PRN 03/21/19 [History] Aspirin 325 mg PO BID #60 tab 03/22/19 [Rx] HYDROcodone/APAP 5-325MG [[place] 5-325] 1 - 2 tab PO Q6HR PRN #56 tab 03/22/19 [R x] Sennosides [Senokot] 1 tab PO BID #60 tablet 03/22/19 [Rx] Follow up Appointment(s)/Referral(s): Raj Fulton MD [Primary Care Provider] - 03/30/19 3:00 pm Primitivo Romero DO [Doctor of Osteopathic Medicine] - 04/03/19 2:00 pm Faviola Ewing [NON-STAFF] - Ambulatory/Diagnostic Orders: Walker w/ Wheels [DME.AMB1] Time Frame: 3 Months, Location: None Selected Activity/Diet/Wound Care/Special Instructions: Weightbearing as tolerated with walker. Leave dressing intact. Dressing may be removed by home care nurse or by patient in 10 days. May shower with dressing on. Recommend use of compression stockings daily for at least 2 weeks during the day to help prevent swelling and blood clots. May remove at night before sleeping. Please follow-up with [facility] in 2 weeks and call with any questions or concerns, . Shawn will deliver AFO brace to bedside on 03/23/19. Discharge Disposition: TRANSFER TO SNF/ECF
[2019-03-24] MEDS: MELOXICAM 7.5 MG TAB PO SCH (09:07)
[2019-03-24] MEDS: FERROUS SULFATE 325 MG TAB PO SCH ×2 (09:07→17:40)
[2019-03-24] MEDS: ASPIRIN 325 MG TAB PO SCH (09:07)
[2019-03-24] MEDS: PANTOPRAZOLE 40 MG TABLET PO SCH (09:07)
[2019-03-24] MEDS: GABAPENTIN 400 MG CAP PO SCH ×3 (09:07→17:40)
--- NOTE | 2019-03-24 10:34 | P.PN ---
Progress Note - Text Progress Note Date: 03/23/19 - Chief Complaint Right hip surgery Interval history: This is a pleasant 78-year-old patient of Dr. Fulton. Patient undergone right total hip arthroplasty. Chronic stable medical conditions include depression, GERD, hypertension, osteoarthritis. Patient is at low platelets in the past that has been corrected. Today-did work with therapy. No new issues. Breathing stable. Did tolerate her breakfast. Some pain of the operative site.. Review of systems: Was done for constitutional, cardiovascular, GI, pulmonary. relevant finding as above Current medications are reviewed in today's electronic records Physical examination: VITAL SIGNS: 100.3, 110, 18, 149/68, 97% room air GENERAL: Sitting up, comfortable EYES: Pupils equal. Conjunctiva normal. HEENT: External appearance of nose and ears normal, oral cavity grossly normal. NECK: JVD not raised; masses not palpable. HEART: First and second heart sounds are normal; no edema. LUNGS: Respiratory rate normal; clear to auscultation. ABDOMEN: Soft, nontender, liver spleen not palpable, no masses palpable. PSYCH: Alert and oriented x3; mood and affect normal. MUSCULOSKELETAL: Evidence of OA especially in the hands, dressing over the right hip INVESTIGATIONS, reviewed in the clinical context: No labs from today White count 10.9 abdomen 8.5 Blood work from 03/07/2019. White count 7.8 hemoglobin 12.7 platelets 322 potassium 4.4 creatinine 0.63 Assessment: -Right total hip arthroplasty -GERD -Essential hypertension, -Postop hypotension from blood loss -Primary osteoarthritis -Depression not otherwise specified -Acute postop blood loss anemia as expected from surgery Plan: Care was discussed with the patient. Questions were answered. Antihypertensives will be introduced slowly. Discussed with the patient. Repeat CBC in the morning. Patient has no infectious symptoms.-Follow closely Thank you Dr. Romero
--- NOTE | 2019-03-24 12:38 | XR ---
EXAMINATION TYPE: XR chest 1V portable DATE OF EXAM: 03/24/2019 COMPARISON: 03/21/2015 HISTORY: Fever TECHNIQUE: Single frontal view of the chest is obtained. FINDINGS: There is no focal air space opacity, pleural effusion, or pneumothorax seen. The cardiac silhouette size is within normal limits. The osseous structures are intact. Postsurgical change ove rlying the shoulders. Atherosclerotic change aorta. No overt failure. IMPRESSION: No acute process.
[2019-03-24 15:05] VITALS: BP 112/52; PULSE 108; TEMP 99.2
[2019-03-24 16:18] LABS: Appearance,Urine Clear (Clear); Bilirubin,Urine Negative (Negative); Blood,Urine Negative (Negative); Color,Urine Yellow; Glucose,Urine (UA) Negative (Negative); Ketones,Urine Negative (Negative); Leukocyte Esterase,Urine Negative (Negative); Nitrite,Urine Negative (Negative); PH, Urine 6.5 (5.0-8.0); Protein,Urine Trace (Negative); Specific Gravity,Urine 1.015 (1.001-1.035)
--- NOTE | 2019-03-25 06:15 | P.PN ---
Subjective Progress Note Date: 03/24/19 Principal diagnosis: Covering for Dr. Eli This is a pleasant 78-year-old patient of Dr. Fulton. Patient undergone right total hip arthroplasty. Chronic stable medical conditions include depression, GERD, hypertension, osteoarthritis. Patient is at low platelets in the past that has been corrected. Today-did work with therapy. No new issues. Breathing stable. Did tolerate her breakfast. Some pain of the operative site.. Review of systems: Was done for constitutional, cardiovascular, GI, pulmonary. relevant finding as above Current medications are reviewed in today's electronic records 03/24/2019 Patient is currently up and walking back from the bathroom with a walker in no acute distress. Patient has been having intermittent low grade fevers and being closely monitored. Repeat CBC this morning was 7.7. No active bleeding noted. Patient states that she has been having low hemoglobin readings in the outpatient setting and has been managed by her primary care provider. Patient has been taking iron supplements that were prescribed to her. A urinalysis was ordered and was negative. Chest xray today showing no acute process. Patient has been working with PT/OT Review of systems: Cardio: no reports of chest pain or palpitations Respiratory: no reports of shortness of breath or cough GI: no reports of nausea, vomiting, or diarrhea : no reports of dysuria or retention Musculoskeletal: reports mild discomfort of the right hip Current medications: [place] Mobic valium Aspirin Estrace Ferrous sulfate Gabapentin Protonix Senokot Effexor Objective - Vital Signs Vital signs: Vital Signs Temp 99.2 F 03/24/19 14:43 Pulse 108 H 03/24/19 14:43 Resp 16 03/24/19 14:43 BP 112/52 03/24/19 14:43 Pulse Ox 97 03/24/19 14:43 Intake & Output 03/23/19 03/24/19 03/24/19 18:59 06:59 18:59 Intake Total 520 320 500 Balance 520 320 500 Intake: IV 520 Sodium Chloride 0.9% 1, 520 000 ml @ 65 mls/hr IV . [id number] COUNT INCLUDES THE [facility] Rx#:[id number] Oral 320 500 Other: Voiding Method Toilet Toilet # Voids 2 3 - Exam Physical examination: VITAL SIGNS: 99.2, 108, 16, 112/52, 97% room air GENERAL: Sitting up, comfortable EYES: Pupils equal. Conjunctiva normal. HEENT: External appearance of nose and ears normal, oral cavity grossly normal. NECK: JVD not raised; masses not palpable. HEART:S1, and S2 present. LUNGS: Respiratory rate normal; clear to auscultation. ABDOMEN: Soft, nontender, liver spleen not palpable, no masses palpable. PSYCH: Alert and oriented x3; mood and affect normal. MUSCULOSKELETAL: Evidence of OA especially in the hands, dressing over the right hip noted and is dry and intact - Labs CBC & Chem 7: 03/24/19 07:06 Labs: Abnormal Lab Results - Last 24 Hours (Table) 03/24/19 Range/Units 07:06 RBC 2.64 L (3.80-5.40) m/uL Hgb 7.7 L (11.4-16.0) gm/dL Hct 23.3 L (34.0-46.0) % Assessment and Plan Assessment: -Right total hip arthroplasty -GERD -Essential hypertension, currently Pressures decreased -Primary osteoarthritis -Depression not otherwise specified -Acute postop blood loss anemia as expected from surgery Recommendations and discussion: Recommend to continue current medications, management, and symptomatic treatment. Patient is currently afebrile. Urinalysis was negative. Repeat hemoglobin is 7.7 today. Chest xray showing no acute process. Patient is to be going to [facility] today for continued PT/OT. Repeat labs in 2 days to monitor CBC. Guarded prognosis. Further recommendations to follow. Will continue to follow closely. Discharge this afternoon to [facility] and [facility] with [facility] in the outpatient setting as discussed.
== END 2019-03-24 18:03 | DRG 470 ==
LOC: 2ORMAIN 09:57 → 4SSUR 13:41
PROVIDERS: ADMIT Orthopaedic Surgery; ATTEND Orthopaedic Surgery
PROC: 0SR906A Replacement of Right Hip Joint with Oxidized Zirconium on Polyethylene Synthetic Substitute, Uncemented, Open Approach (ICD-10-PCS; principal; 2019-03-21 11:45)
DX: M16.11 Unilateral primary osteoarthritis, right hip (principal); D62 Acute posthemorrhagic anemia; F33.1 Major depressive disorder, recurrent, moderate; I95.9 Hypotension, unspecified; K21.9 Gastro-esophageal reflux disease without esophagitis; M79.674 Pain in right toe(s); I10 Essential (primary) hypertension; E78.5 Hyperlipidemia, unspecified; G47.00 Insomnia, unspecified; E78.1 Pure hyperglyceridemia; G89.29 Other chronic pain; M54.5 Low back pain; Z79.890 Hormone replacement therapy; Z79.899 Other long term (current) drug therapy; Z91.81 History of falling; Z86.2 Personal history of diseases of the blood and blood-forming organs and certain disorders involving the immune mechanism; Z87.11 Personal history of peptic ulcer disease; Z90.49 Acquired absence of other specified parts of digestive tract; Z98.891 History of uterine scar from previous surgery; Z96.653 Presence of artificial knee joint, bilateral; Z96.642 Presence of left artificial hip joint; Z96.612 Presence of left artificial shoulder joint; Z96.611 Presence of right artificial shoulder joint; Z90.710 Acquired absence of both cervix and uterus; Z98.890 Other specified postprocedural states; Z98.41 Cataract extraction status, right eye; Z80.0 Family history of malignant neoplasm of digestive organs; Z88.8 Allergy status to other drugs, medicaments and biological substances
CPT/HCPCS: 36415; 71045; 73501; 81003; 85025; 86850; 86891; 86900; 86901; 87086; 88300